=== PATIENT | male | born 1940 | race Caucasian/White ===

== ENCOUNTER 2018-04-15 12:55 | Inpatient (IN) ==
[2018-04-15] MEDS ORDERED: SODIUM CHLORIDE 0.9% 500 ML IV STA (14:13)
[2018-04-15 14:56] LABS: Basophils % 0.5 % (0.0-0.8); Eosinophils # 0.1 10*3/uL (0.0-0.87); Eosinophils % 1.1 % (0.00-10.9); Hematocrit 42.5 VOL% (42.0-52.0); Hemoglobin 14.8 GM/DL (14.0-18.0); Immature Granulocytes % 0.4 %; Immature Granulocytes Absolute 0.03 #; Lymphocytes # 1.4 10*3/uL (1.4-4.0); Lymphocytes % 18.8 % (21.2-54.2); Mean Corpuscular HGB Conc 34.8 GM/DL (32-36); Mean Corpuscular Hemoglobin 30 PG (27-34); Mean Corpuscular Volume 85.7 FL (87-102); Mean Platelet Volume 10.1 FL (9.6-12.0); Monocytes # 0.5 10*3/uL (0.11-0.8); Monocytes % 7.3 % (1.7-12.7); Neutrophils # 5.4 10*3/uL (1.4-7.4); Neutrophils % 71.9 % (38.7-73.9); Platelet Count 176 T/CUMM (130-400); Red Blood Count 4.96 MC/CUMM (3.8-5.5); Red Cell Distribution Width 12.8 % (9.3-17.3); White Blood Count 7.4 T/CUMM (4-12)
[2018-04-15 15:09] LABS: Apearance,Urine CLEAR (Clear); Bilirubin,Urine Negative (Negative); Blood, Urine Negative (Negative); Glucose,Urine (UA) Negative (Negative); Ketones,Urine Negative (Negative); Nitrite,Urine Negative (Negative); PT Patient Result 10.1 SECS; Partial Thromboplastin Time 25.8 SECS (0-40); Protein,Urine Negative; Urine Color Colorless (Yellow); Urine Specific Gravity 1.005 (1.001-1.035); Urine Urobilinogen < 2.0 EU/DL (0.2-1.0); WBC,Urine 1 /HPF (0-6)
[2018-04-15 15:16] LABS: Troponin I < 0.015 NG/ML (0.00-0.045)
[2018-04-15 15:17] LABS: Alanine Aminotransferase 23 U/L (16-61); Albumin 4.1 G/DL (3.4-5.0); Alkaline Phosphatase 89 U/L (45-117); Aspartate Amino Transferase 16 U/L (0-37); Blood Urea Nitrogen 17 MG/DL (7-18); Glucose 95 MG/DL (74-106); Osmolality,Calculated 284.1 MOS/KG (273-304); Sodium 142 MMOL/L (136-145); Total Protein 7.2 G/DL (6.4-8.3)
[2018-04-15 15:34] LABS: Barbiturates Screen,Urine Negative (Negative); Benzodiazepines Screen,Urine Negative (Negative); Cannabinoid Screen,Urine Negative (Negative); Opiate Screen,Urine Negative (Negative); Phencyclidine Screen,Urine Negative (Negative)
[2018-04-15] MEDS ORDERED: ASPIRIN EC 325 MG TABLET PO STA (15:54)
[2018-04-15] MEDS ORDERED: ACETAMINOPHEN 325 MG TABLET PO PRN (16:59)
[2018-04-15] MEDS ORDERED: diphenhydrAMINE CAP 25 MG CAPSULE PO PRN (16:59)
[2018-04-15] MEDS ORDERED: SODIUM CHLORIDE 0.9% 1,000 ML IV SCH (17:00)
[2018-04-15 17:37] LABS: Risk Ratio 2.84; T4 (Thyroxine) 9.4 UG/DL (4.7-13.3); VLDL CHOLESTEROL 12.6 MG/DL
[2018-04-15] MEDS ORDERED: traZODone 50 MG TABLET PO PRN (21:00)
[2018-04-15] MEDS: DOCUSATE SODIUM 100 MG CAPSULE PO SCH (21:10)
[2018-04-16 01:58] LABS: Basophils # 0.1 10*3/uL (0.0-0.2); Basophils % 0.6 % (0.0-0.8); Eosinophils # 0.3 10*3/uL (0.0-0.87); Eosinophils % 2.9 % (0.00-10.9); Hematocrit 39.1 VOL% (42.0-52.0); Hemoglobin 13.1 GM/DL (14.0-18.0); Immature Granulocytes % 0.4 %; Immature Granulocytes Absolute 0.03 #; Lymphocytes % 23.3 % (21.2-54.2); Mean Corpuscular HGB Conc 33.5 GM/DL (32-36); Mean Corpuscular Hemoglobin 30 PG (27-34); Mean Corpuscular Volume 88.5 FL (87-102); Mean Platelet Volume 9.9 FL (9.6-12.0); Monocytes # 0.8 10*3/uL (0.11-0.8); Monocytes % 9.3 % (1.7-12.7); Neutrophils # 5.4 10*3/uL (1.4-7.4); Neutrophils % 63.5 % (38.7-73.9); Platelet Count 146 T/CUMM (130-400); Red Blood Count 4.42 MC/CUMM (3.8-5.5); Red Cell Distribution Width 12.7 % (9.3-17.3); White Blood Count 8.5 T/CUMM (4-12)
[2018-04-16 02:25] LABS: Albumin 3.4 G/DL (3.4-5.0); Bilirubin,Total 0.4 MG/DL (0.2-1.0); Calcium 8.6 MG/DL (8.5-10.1); Osmolality,Calculated 286.8 MOS/KG (273-304); Potassium 3.8 MMOL/L (3.5-5.1); Total Protein 6.2 G/DL (6.4-8.3)
[2018-04-16] MEDS: amLODIPine 5 MG TABLET PO SCH (09:18)
[2018-04-16] MEDS: PANTOPRAZOLE 40 MG TABLET PO SCH (09:18)
[2018-04-16] MEDS ORDERED: LORazepam 1 MG TABLET PO ONE (10:23)
[2018-04-16] MEDS: DOCUSATE SODIUM 100 MG CAPSULE PO SCH ×2 (11:51→20:41)
[2018-04-16] MEDS ORDERED: ATORVASTATIN 40 MG TABLET PO SCH (21:00)
[2018-04-17 07:53] LABS: Basophils # 0.1 10*3/uL (0.0-0.2); Basophils % 0.7 % (0.0-0.8); Eosinophils # 0.3 10*3/uL (0.0-0.87); Eosinophils % 4.6 % (0.00-10.9); Hematocrit 39.8 VOL% (42.0-52.0); Hemoglobin 13.8 GM/DL (14.0-18.0); Immature Granulocytes % 0.1 %; Immature Granulocytes Absolute 0.01 #; Lymphocytes # 1.9 10*3/uL (1.4-4.0); Lymphocytes % 26.7 % (21.2-54.2); Mean Corpuscular HGB Conc 34.7 GM/DL (32-36); Mean Corpuscular Hemoglobin 30 PG (27-34); Mean Corpuscular Volume 87.1 FL (87-102); Mean Platelet Volume 10.4 FL (9.6-12.0); Monocytes # 0.7 10*3/uL (0.11-0.8); Monocytes % 10.2 % (1.7-12.7); Neutrophils # 4.2 10*3/uL (1.4-7.4); Neutrophils % 57.7 % (38.7-73.9); Platelet Count 160 T/CUMM (130-400); Red Blood Count 4.57 MC/CUMM (3.8-5.5); Red Cell Distribution Width 12.9 % (9.3-17.3); White Blood Count 7.2 T/CUMM (4-12)
[2018-04-17 08:20] LABS: Albumin 3.2 G/DL (3.4-5.0); Bilirubin,Total 0.6 MG/DL (0.2-1.0); Calcium 8.4 MG/DL (8.5-10.1); Osmolality,Calculated 286.8 MOS/KG (273-304); Potassium 4.7 MMOL/L (3.5-5.1)
[2018-04-17] MEDS: DOCUSATE SODIUM 100 MG CAPSULE PO SCH (08:36)
[2018-04-17] MEDS: PANTOPRAZOLE 40 MG TABLET PO SCH (08:37)
[2018-04-17] MEDS: amLODIPine 5 MG TABLET PO SCH (08:37)
[2018-04-17] MEDS ORDERED: ASPIRIN EC 81 MG TABLET PO SCH (11:00)
[2018-04-17 12:37] VITALS: BP 143/81
== END 2018-04-17 14:55 | disposition home or self-care (01) | DRG 65 ==
LOC: N.ED 12:55 → N.EDINP 16:58 → N.4E 20:40
PROVIDERS: ADMIT Internal Medicine; ATTEND Internal Medicine

== ENCOUNTER 2018-12-04 16:31 | Inpatient (IN) ==
[2018-12-04 17:38] LABS: Basophils # 0.1 10*3/uL (0.0-0.2); Basophils % 0.8 % (0.0-0.8); Eosinophils # 0.2 10*3/uL (0.0-0.87); Eosinophils % 3.2 % (0.00-10.9); Hematocrit 41.7 VOL% (42.0-52.0); Hemoglobin 13.7 GM/DL (14.0-18.0); Immature Granulocytes % 0.5 %; Immature Granulocytes Absolute 0.04 #; Lymphocytes # 1.9 10*3/uL (1.4-4.0); Lymphocytes % 24.8 % (21.2-54.2); Mean Corpuscular HGB Conc 32.9 GM/DL (32-36); Mean Corpuscular Volume 89.7 FL (87-102); Mean Platelet Volume 9.9 FL (9.6-12.0); Monocytes % 8.5 % (1.7-12.7); Neutrophils % 62.2 % (38.7-73.9); Platelet Count 166 T/CUMM (130-400); Red Blood Count 4.65 MC/CUMM (3.8-5.5); Red Cell Distribution Width 13.3 % (9.3-17.3); White Blood Count 7.5 T/CUMM (4-12)
[2018-12-04 17:46] LABS: Apearance,Urine CLEAR (Clear); Bilirubin,Urine Negative (Negative); Blood, Urine Negative (Negative); Glucose,Urine (UA) Negative (Negative); Hyaline Casts,Urine 7 /LPF (0-3); Ketones,Urine Negative (Negative); Mucus,Urine Occasional /LPF (Occasional); Nitrite,Urine Negative (Negative); Protein,Urine Negative; RBC,Urine 2 /HPF (0-4); Urine Color Yellow (Yellow); Urine Urobilinogen < 2.0 EU/DL (0.2-1.0); WBC,Urine 1 /HPF (0-6)
[2018-12-04 17:47] LABS: INR 0.9; PT Patient Result 10.2 SECS; Partial Thromboplastin Time 25.4 SECS (0-40)
[2018-12-04 17:57] LABS: Barbiturates Screen,Urine Negative (Negative); Benzodiazepines Screen,Urine Negative (Negative); Cannabinoid Screen,Urine Negative (Negative); Opiate Screen,Urine Negative (Negative); Phencyclidine Screen,Urine Negative (Negative)
[2018-12-04 18:02] LABS: Alanine Aminotransferase 25 U/L (16-61); Albumin 4.1 G/DL (3.4-5.0); Alkaline Phosphatase 86 U/L (45-117); Aspartate Amino Transferase 18 U/L (0-37); Blood Urea Nitrogen 22 MG/DL (7-18); Calcium 8.3 MG/DL (8.5-10.1); Glucose 98 MG/DL (74-106); Osmolality,Calculated 283.3 MOS/KG (273-304); Total Protein 7.2 G/DL (6.4-8.3); Troponin I < 0.015 NG/ML (0.00-0.045)
[2018-12-04] MEDS: ROSUVASTATIN 20 MG TABLET PO SCH (21:42)
[2018-12-05 05:00] LABS: Basophils % 0.6 % (0.0-0.8); Eosinophils # 0.3 10*3/uL (0.0-0.87); Eosinophils % 3.8 % (0.00-10.9); Hematocrit 37.8 VOL% (42.0-52.0); Hemoglobin 12.5 GM/DL (14.0-18.0); Immature Granulocytes % 0.1 %; Immature Granulocytes Absolute 0.01 #; Lymphocytes # 1.9 10*3/uL (1.4-4.0); Lymphocytes % 26.5 % (21.2-54.2); Mean Corpuscular HGB Conc 33.1 GM/DL (32-36); Mean Corpuscular Volume 89.8 FL (87-102); Mean Platelet Volume 9.8 FL (9.6-12.0); Monocytes % 11.2 % (1.7-12.7); Neutrophils % 57.8 % (38.7-73.9); Platelet Count 151 T/CUMM (130-400); Red Blood Count 4.21 MC/CUMM (3.8-5.5); Red Cell Distribution Width 13.2 % (9.3-17.3); White Blood Count 7.1 T/CUMM (4-12)
[2018-12-05 05:33] LABS: Calcium 8.3 MG/DL (8.5-10.1); Osmolality,Calculated 291.7 MOS/KG (273-304); Risk Ratio 2.76; Thyroid Stimulating Hormone 4.24 uIU/ml (0.358-3.74)
[2018-12-05 07:47] LABS: Eosinophils 3 % (0-10); Hypochromasia 1+; Lymphocytes 31 % (20-55); Microcytosis Slight; Segmented Neutrophils 58 % (50-85); Total Cells Counted 100
[2018-12-05 07:48] LABS: Platelet Estimate Adequate
[2018-12-05] MEDS ORDERED: LORazepam 2 MG/1 ML VIAL IV ONE (09:23)
[2018-12-05] MEDS: PANTOPRAZOLE 40 MG TABLET PO SCH (09:30)
[2018-12-05] MEDS: amLODIPine 5 MG TABLET PO SCH (09:30)
[2018-12-05] MEDS: ASPIRIN EC 81 MG TABLET PO SCH (09:30)
[2018-12-05] MEDS: LISINOPRIL 10 MG TABLET PO SCH (09:38)
[2018-12-05] MEDS: ROSUVASTATIN 20 MG TABLET PO SCH (21:35)
[2018-12-06 04:16] LABS: Basophils # 0.1 10*3/uL (0.0-0.2); Basophils % 0.6 % (0.0-0.8); Eosinophils # 0.4 10*3/uL (0.0-0.87); Eosinophils % 4.6 % (0.00-10.9); Hematocrit 38.8 VOL% (42.0-52.0); Hemoglobin 12.6 GM/DL (14.0-18.0); Immature Granulocytes % 0.3 %; Immature Granulocytes Absolute 0.02 #; Lymphocytes # 2.1 10*3/uL (1.4-4.0); Lymphocytes % 26.5 % (21.2-54.2); Mean Corpuscular HGB Conc 32.5 GM/DL (32-36); Mean Corpuscular Volume 90.2 FL (87-102); Mean Platelet Volume 10.3 FL (9.6-12.0); Platelet Count 154 T/CUMM (130-400); Red Cell Distribution Width 13.2 % (9.3-17.3); White Blood Count 7.8 T/CUMM (4-12)
[2018-12-06 04:33] LABS: Osmolality,Calculated 289.7 MOS/KG (273-304)
[2018-12-06] MEDS: amLODIPine 5 MG TABLET PO SCH (09:33)
[2018-12-06] MEDS: ASPIRIN EC 81 MG TABLET PO SCH (09:33)
[2018-12-06] MEDS: LISINOPRIL 10 MG TABLET PO SCH (09:33)
[2018-12-06] MEDS: PANTOPRAZOLE 40 MG TABLET PO SCH (09:33)
[2018-12-06] MEDS: ROSUVASTATIN 20 MG TABLET PO SCH (21:09)
[2018-12-07] MEDS: amLODIPine 5 MG TABLET PO SCH (08:24)
[2018-12-07] MEDS: PANTOPRAZOLE 40 MG TABLET PO SCH (08:24)
[2018-12-07] MEDS: ASPIRIN EC 81 MG TABLET PO SCH (08:24)
[2018-12-07] MEDS: LISINOPRIL 10 MG TABLET PO SCH (08:25)
[2018-12-07] MEDS: CIPROFLOXACIN/DEXAMETHASONE OTIC SUSP 7.5 ML BOTTLE RIGHT EAR SCH (20:41)
[2018-12-07] MEDS: ROSUVASTATIN 20 MG TABLET PO SCH (20:41)
[2018-12-08] MEDS: amLODIPine 5 MG TABLET PO SCH (08:47)
[2018-12-08] MEDS: ASPIRIN EC 81 MG TABLET PO SCH (08:47)
[2018-12-08] MEDS: PANTOPRAZOLE 40 MG TABLET PO SCH (08:47)
[2018-12-08] MEDS: LISINOPRIL 10 MG TABLET PO SCH (08:47)
[2018-12-08] MEDS: CIPROFLOXACIN/DEXAMETHASONE OTIC SUSP 7.5 ML BOTTLE RIGHT EAR SCH ×2 (08:47→20:36)
[2018-12-08] MEDS: ROSUVASTATIN 20 MG TABLET PO SCH (20:36)
[2018-12-09] MEDS ORDERED: ceFAZolin 1,000 MG in SYRINGE 1 EACH IV ONE (06:30)
[2018-12-09] MEDS ORDERED: LIDOCAINE 1%/EPI INJ 20 ML VIAL ONE (07:30)
[2018-12-09] MEDS ORDERED: HEPARIN 5,000 UNIT/1 ML VIAL ONE (07:30)
[2018-12-09] MEDS ORDERED: LIDOCAINE 1% 20 ML VIAL ONE (07:31)
[2018-12-09] MEDS ORDERED: PROMETHAZINE 25 MG/1 ML VIAL IM PRN (09:46)
[2018-12-09] MEDS ORDERED: ONDANSETRON 4 MG/2 ML VIAL IV PRN ×2 (09:46→10:30)
[2018-12-09] MEDS ORDERED: DEXTROSE 50% 25 GM/50 ML VIAL IV PRN (09:46)
[2018-12-09] MEDS ORDERED: oxyCODONE/ACETAMINOPHEN 5-325 MG TABLET PO PRN (09:46)
[2018-12-09] MEDS ORDERED: GLUCAGON 1 MG VIAL IM PRN (09:46)
[2018-12-09] MEDS ORDERED: HYDROmorphone 2 MG/1 ML VIAL IV PRN (09:46)
[2018-12-09] MEDS ORDERED: NALOXONE 0.4 MG/ML VIAL IV PRN (09:46)
[2018-12-09] MEDS: LACTATED RINGERS 1,000 ML IV SCH ×2 (09:52→14:30)
[2018-12-09] MEDS ORDERED: NITROPRUSSIDE 100 MG in DEXTROSE 5% 250 ML IV SCH (10:00)
[2018-12-09] MEDS ORDERED: PROPOFOL 200 MG/20 ML VIAL IV ONE (10:17)
[2018-12-09] MEDS ORDERED: HEPARIN 10,000 UNIT/10 ML VIAL ONE (10:18)
[2018-12-09] MEDS ORDERED: PHENYLEPHRINE 10 MG/1 ML VIAL IV ONE (10:18)
[2018-12-09] MEDS ORDERED: HEPARIN/NACL 0.9% 2 UNITS/ML 500 ML IV ONE (10:18)
[2018-12-09] MEDS ORDERED: SEVOFLURANE 1 UNIT/15 MINUTE INH ONE (10:18)
[2018-12-09] MEDS ORDERED: fentaNYL 100 MCG/2 ML VIAL ONE (10:18)
[2018-12-09] MEDS ORDERED: ePHEDrine 50 MG/ML AMP ONE (10:18)
[2018-12-09] MEDS ORDERED: MIDAZOLAM 2 MG/2 ML VIAL ONE (10:18)
[2018-12-09] MEDS ORDERED: ROCURONIUM 100 MG/10 ML VIAL IV ONE (10:19)
[2018-12-09] MEDS ORDERED: PROTAMINE SULFATE 50 MG/5 ML VIAL IV ONE (10:19)
[2018-12-09] MEDS ORDERED: PHENYLEPHRINE 1 MG/10 ML SYRINGE IV ONE (10:19)
[2018-12-09] MEDS ORDERED: NITROGLYCERIN DRIP 50 MG/250 ML BOTTLE IV ONE (10:19)
[2018-12-09] MEDS ORDERED: SODIUM CHLORIDE 0.9% 250 ML IV ONE (10:19)
[2018-12-09] MEDS ORDERED: GLYCOPYRROLATE 0.4 MG/2 ML VIAL ONE (10:19)
[2018-12-09] MEDS ORDERED: SODIUM CHLORIDE 0.9% 200 ML IV ONE (10:19)
[2018-12-09] MEDS ORDERED: ETOMIDATE 40 MG/20 ML VIAL IV ONE (10:19)
[2018-12-09] MEDS ORDERED: NEOSTIGMINE 10 MG/10 ML VIAL ONE (10:20)
[2018-12-09] MEDS: MEPERIDINE 25 MG/1 ML VIAL IV PRN ×2 (10:20→10:55)
[2018-12-09] MEDS ORDERED: MEPERIDINE 25 MG/1 ML VIAL ONE ×2 (10:22→10:53)
[2018-12-09] MEDS ORDERED: ONDANSETRON 4 MG/2 ML VIAL ONE (10:22)
[2018-12-09] MEDS: ASPIRIN EC 81 MG TABLET PO SCH (16:39)
[2018-12-09] MEDS: PANTOPRAZOLE 40 MG TABLET PO SCH (16:39)
[2018-12-09] MEDS: CIPROFLOXACIN/DEXAMETHASONE OTIC SUSP 7.5 ML BOTTLE RIGHT EAR SCH ×2 (16:39→20:52)
[2018-12-09] MEDS: amLODIPine 5 MG TABLET PO SCH (16:39)
[2018-12-09] MEDS: LISINOPRIL 10 MG TABLET PO SCH (16:39)
[2018-12-09] MEDS: PHENYLEPHRINE DRIP 40 MG/250 ML PREMIX IV SCH (16:41)
[2018-12-09] MEDS: HYDROmorphone 2 MG/1 ML VIAL IV PRN ×2 (16:45→18:20)
[2018-12-09 17:11] LABS: Apearance,Urine CLEAR (Clear); Bilirubin,Urine Negative (Negative); Blood, Urine Moderate mg/dL (Negative); Glucose,Urine (UA) Negative (Negative); Ketones,Urine Negative (Negative); Mucus,Urine Occasional /LPF (Occasional); Nitrite,Urine Negative (Negative); Protein,Urine Negative; RBC,Urine 26 /HPF (0-4); Urine Color Straw (Yellow); Urine Specific Gravity 1.011 (1.001-1.035); Urine Urobilinogen < 2.0 EU/DL (0.2-1.0)
[2018-12-09] MEDS: ROSUVASTATIN 20 MG TABLET PO SCH (20:52)
[2018-12-10] MEDS: LACTATED RINGERS 1,000 ML IV SCH ×2 (01:00→09:25)
[2018-12-10] MEDS: PHENYLEPHRINE DRIP 40 MG/250 ML PREMIX IV SCH (01:01)
[2018-12-10] MEDS ORDERED: ALUMINUM/MAGNES/SIMETH MAX STR 30 ML UDCUP PO PRN (03:12)
[2018-12-10 05:23] LABS: Basophils # 0.1 10*3/uL (0.0-0.2); Basophils % 0.6 % (0.0-0.8); Eosinophils # 0.1 10*3/uL (0.0-0.87); Eosinophils % 1.1 % (0.00-10.9); Hematocrit 38.2 VOL% (42.0-52.0); Hemoglobin 12.5 GM/DL (14.0-18.0); Immature Granulocytes % 0.5 %; Immature Granulocytes Absolute 0.06 #; Lymphocytes # 2.1 10*3/uL (1.4-4.0); Lymphocytes % 16.6 % (21.2-54.2); Mean Corpuscular HGB Conc 32.7 GM/DL (32-36); Mean Corpuscular Volume 90.3 FL (87-102); Mean Platelet Volume 9.9 FL (9.6-12.0); Monocytes % 10.4 % (1.7-12.7); Neutrophils % 70.8 % (38.7-73.9); Platelet Count 164 T/CUMM (130-400); Red Blood Count 4.23 MC/CUMM (3.8-5.5); Red Cell Distribution Width 13.2 % (9.3-17.3); White Blood Count 12.3 T/CUMM (4-12)
[2018-12-10 05:37] LABS: Calcium 8.2 MG/DL (8.5-10.1); Osmolality,Calculated 280.4 MOS/KG (273-304)
[2018-12-10] MEDS ORDERED: MULTIVITAMIN (CENTRUM) TABLET PO SCH (09:00)
[2018-12-10] MEDS ORDERED: OMEPRAZOLE 10 MG PO SCH (09:00)
[2018-12-10] MEDS ORDERED: [UNRECOGNIZED DRUG - OTHER] PO SCH (09:00)
[2018-12-10] MEDS: PANTOPRAZOLE 40 MG TABLET PO SCH (09:11)
[2018-12-10] MEDS: ASPIRIN EC 81 MG TABLET PO SCH (09:11)
[2018-12-10] MEDS: CIPROFLOXACIN/DEXAMETHASONE OTIC SUSP 7.5 ML BOTTLE RIGHT EAR SCH ×2 (09:12→21:00)
[2018-12-10] MEDS: CLOPIDOGREL 75 MG TABLET PO SCH (09:12)
[2018-12-10] MEDS: oxyCODONE/ACETAMINOPHEN 5-325 MG TABLET PO PRN ×2 (09:15→21:16)
[2018-12-10] MEDS: amLODIPine 5 MG TABLET PO SCH (09:26)
[2018-12-10] MEDS: LISINOPRIL 10 MG TABLET PO SCH (09:26)
[2018-12-10] MEDS: ROSUVASTATIN 20 MG TABLET PO SCH (21:00)
[2018-12-11 04:03] LABS: Basophils # 0.1 10*3/uL (0.0-0.2); Basophils % 0.6 % (0.0-0.8); Eosinophils # 0.3 10*3/uL (0.0-0.87); Eosinophils % 3.4 % (0.00-10.9); Immature Granulocytes % 0.6 %; Immature Granulocytes Absolute 0.05 #; Lymphocytes # 1.9 10*3/uL (1.4-4.0); Lymphocytes % 23.5 % (21.2-54.2); Mean Corpuscular HGB Conc 32.4 GM/DL (32-36); Mean Corpuscular Volume 91.2 FL (87-102); Mean Platelet Volume 10.1 FL (9.6-12.0); Monocytes % 12.3 % (1.7-12.7); Neutrophils % 59.6 % (38.7-73.9); Platelet Count 124 T/CUMM (130-400); Red Blood Count 3.73 MC/CUMM (3.8-5.5); Red Cell Distribution Width 12.9 % (9.3-17.3); White Blood Count 7.9 T/CUMM (4-12)
[2018-12-11 04:38] LABS: Calcium 7.8 MG/DL (8.5-10.1); Osmolality,Calculated 280.4 MOS/KG (273-304)
[2018-12-11] MEDS: ASPIRIN EC 81 MG TABLET PO SCH (09:54)
[2018-12-11] MEDS: CIPROFLOXACIN/DEXAMETHASONE OTIC SUSP 7.5 ML BOTTLE RIGHT EAR SCH (09:54)
[2018-12-11] MEDS: CLOPIDOGREL 75 MG TABLET PO SCH (09:54)
[2018-12-11] MEDS: PANTOPRAZOLE 40 MG TABLET PO SCH (09:54)
[2018-12-11 11:56] VITALS: BP 100/56
== END 2018-12-11 14:30 | disposition home or self-care (01) | DRG 38 ==
LOC: N.EDINP 16:31 → N.ED 16:31 → SUATTDRO 18:46 → N.TELEN 19:22 → SUATTDRO 12-08 12:47 → N.ICU 12-09 11:12 → N.4E 12-10 13:05
PROVIDERS: ADMIT Emergency Medicine; ATTEND Internal Medicine